=== PATIENT | female | born 1940 | race Caucasian/White ===

== ENCOUNTER 2018-01-11 11:47 | Emergency (ER) | payer MEDICARE, MEDICAID ==
[~2018-01-11] VITALS: Ht 160 cm; Wt 45.0 kg
[2018-01-11] MEDS ORDERED: SODIUM CHLORIDE 0.9% 1,000 ML IV ONE (12:01)
[2018-01-11 12:44] LABS: CHLORIDE 100 mEq/L (98-107)
[2018-01-11 12:50] LABS: BASOPHILS % 1.3 % (0.0-2.0); EOSINOPHILS % 0.1 % (0.0-5.0); HEMATOCRIT. 36.2 % (36.0-48.0); HEMOGLOBIN. 12.3 g/dL (12.0-16.0); LYMPHOCYTES % 12.1 % (20.0-50.0); MEAN CORPUSCULAR HEMOGLOBIN 32.3 pg (28.0-32.0); MEAN CORPUSCULAR VOLUME 95.5 fL (81.0-99.0); MEAN PLATELET VOLUME 8.4 fl (7.4-10.4); MONOCYTES % 4.9 % (2.0-8.0); NEUTROPHILS % 81.6 % (40.0-76.0); PLATELET 294 x1000/uL (130-400); RED BLOOD CELL COUNT 3.79 mill/uL (4.2-5.4)
[2018-01-11 13:11] LABS: CLARITY URINE CLEAR (CLEAR); COLOR URINE YELLOW (YELLOW); KETONES URINE 2+ (NEGATIVE); LEUKOCYTE ESTERASE URINE 2+ (NEGATIVE); NITRITE URINE NEGATIVE (NEGATIVE); OCCULT BLOOD URINE NEGATIVE (NEGATIVE); PROTEIN URINE NEGATIVE (NEGATIVE); SPECIFIC GRAVITY URINE 1.021 (1.005-1.030)
[2018-01-11] MEDS ORDERED: CEFTRIAXONE 1 G PREMIX 50 ML IV ONE (13:45)
[2018-01-11 14:49] VITALS: BP 123/75
[2018-01-11] MEDS ORDERED: IOHEXOL-300 100 ML BOTTLE ONE (15:36)
== END 2018-01-11 15:03 | disposition home or self-care (01) ==
LOC: ER 11:59
DX: N39.0 Urinary tract infection, site not specified (principal); E16.2 Hypoglycemia, unspecified; E86.0 Dehydration; M54.41 Lumbago with sciatica, right side; E03.9 Hypothyroidism, unspecified; R79.1 Abnormal coagulation profile
CPT/HCPCS: 36415; 51702; 74177; 80053; 81003; 83690; 85025; 85610; 96361; 96374; 99285; J0696; J7030; Q9967; A4315

== ENCOUNTER 2018-06-15 10:04 | Emergency (ER) | payer MEDICARE, MEDICAID ==
[~2018-06-15] VITALS: Ht 149.9 cm; Wt 48.0 kg
[~2018-06-15 10:04] MED LIST: FERR325T6 PO; LEVO100T9 PO
[2018-06-15 11:28] LABS: BASOPHILS % 1.7 % (0.0-2.0); EOSINOPHILS % 1.8 % (0.0-5.0); HEMATOCRIT. 32.7 % (36.0-48.0); HEMOGLOBIN. 11.2 g/dL (12.0-16.0); LYMPHOCYTES % 23.9 % (20.0-50.0); MEAN CORPUSCULAR HEMOGLOBIN 32.9 pg (28.0-32.0); MEAN PLATELET VOLUME 8.6 fl (7.4-10.4); MONOCYTES % 6.3 % (2.0-8.0); NEUTROPHILS % 66.3 % (40.0-76.0); PLATELET 217 x1000/uL (130-400); RED BLOOD CELL COUNT 3.41 mill/uL (4.2-5.4)
[2018-06-15 11:31] LABS: CHLORIDE 105 mEq/L (98-107)
[2018-06-15 11:36] LABS: ETHANOL BLOOD < 10 mg/dL
[2018-06-15] MEDS ORDERED: SODIUM CHLORIDE 0.9% 500 ML IV ONE (11:54)
[2018-06-15 12:37] LABS: CLARITY URINE CLEAR (CLEAR); COLOR URINE YELLOW (YELLOW); KETONES URINE NEGATIVE (NEGATIVE); LEUKOCYTE ESTERASE URINE TRACE (NEGATIVE); NITRITE URINE NEGATIVE (NEGATIVE); OCCULT BLOOD URINE NEGATIVE (NEGATIVE); PH URINE 6.5 (4.5-8.0); PROTEIN URINE NEGATIVE (NEGATIVE); SPECIFIC GRAVITY URINE 1.011 (1.005-1.030); UROBILINOGEN URINE 0.2 E.U./dL (0.2-1.0)
[2018-06-15 12:45] LABS: *AMPHETAMINES SCREEN URINE NEGATIVE (NEGATIVE)
[2018-06-15 12:46] LABS: *BARBITURATES SCREEN URINE NEGATIVE (NEGATIVE); *BENZODIAZEPINES SCREEN URINE NEGATIVE (NEGATIVE); *COCAINE SCREEN URINE NEGATIVE (NEGATIVE); METHADONE URINE SCREEN NEGATIVE (NEGATIVE); OPIATES URINE SCREEN NEGATIVE (NEGATIVE)
[2018-06-15 12:47] LABS: CANNABINOID URINE SCREEN NEGATIVE (NEGATIVE); PHENCYCLIDINE URINE SCREEN NEGATIVE (NEGATIVE)
[2018-06-15] MEDS ORDERED: CEFTRIAXONE 1 G PREMIX 50 ML IV ONE (13:45)
[2018-06-15 16:00] VITALS: BP 135/68
== END 2018-06-15 16:03 | disposition home or self-care (01) ==
LOC: ER 10:04
DX: F03.90 Unspecified dementia, unspecified severity, without behavioral disturbance, psychotic disturbance, mood disturbance, and anxiety (principal); N39.0 Urinary tract infection, site not specified; E86.0 Dehydration; E05.90 Thyrotoxicosis, unspecified without thyrotoxic crisis or storm; M54.30 Sciatica, unspecified side; Z79.899 Other long term (current) drug therapy
CPT/HCPCS: 36415; 70450; 80048; 80305; 80307; 80329; 81003; 85025; 87077; 87086; 87186; 96365; 99285; G0482; J0696; J7040

== ENCOUNTER 2018-09-29 09:19 | Inpatient (IN) | payer MEDICARE, MEDICAID ==
[~2018-09-29] VITALS: Ht 160 cm; Wt 52.6 kg
[2018-09-29] MEDS ORDERED: SODIUM CHLORIDE 0.9% 1,000 ML IV ONE (10:23)
[2018-09-29] MEDS ORDERED: MORPHINE SULFATE 2 MG/ML CPJ (NOT FOR IM USE) IV ONE (10:30)
[2018-09-29 11:01] LABS: EOSINOPHILS % 1.1 % (0.0-5.0); HEMATOCRIT. 34.6 % (36.0-48.0); HEMOGLOBIN. 11.3 g/dL (12.0-16.0); MEAN CORPUSCULAR HEMOGLOBIN 31.9 pg (28.0-32.0); MEAN CORPUSCULAR VOLUME 97.6 fL (81.0-99.0); MEAN PLATELET VOLUME 8.4 fl (7.4-10.4); MONOCYTES % 5.5 % (2.0-8.0); NEUTROPHILS % 78.4 % (40.0-76.0); PLATELET 181 x1000/uL (130-400); RED BLOOD CELL COUNT 3.55 mill/uL (4.2-5.4); RED CELL DISTRIBUTION WIDTH 13.7 % (11.6-14.6)
[2018-09-29 11:07] LABS: CHLORIDE 106 mEq/L (98-107)
[2018-09-29] MEDS ORDERED: MAGNESIUM/ALUMINUM HYDROXIDE/SIMETHICONE 30ML UDC PO PRN (16:15)
[2018-09-29] MEDS ORDERED: ACETAMINOPHEN 325MG TABLET PO PRN (16:15)
[2018-09-29] MEDS ORDERED: GUAIFENESIN 200MG/10ML SUGAR FREE UDC PO PRN (16:15)
[2018-09-29] MEDS ORDERED: CLONIDINE 0.1MG TABLET PO PRN (16:15)
[2018-09-29] MEDS ORDERED: MORPHINE SULFATE 4 MG/ML CPJ (NOT FOR IM USE) IV PRN (16:15)
[2018-09-29] MEDS ORDERED: DIPHENHYDRAMINE 50MG/ML VIAL IV PRN (16:15)
[2018-09-29] MEDS ORDERED: ACETAMINOPHEN 650MG SUPP PR PRN (16:15)
[2018-09-29] MEDS ORDERED: DOCUSATE SODIUM 100MG CAPSULE PO PRN (16:15)
[2018-09-29] MEDS ORDERED: IPRATROPIUM/ALBUTEROL 0.5-3(2.5)MG/3ML NEB INH PRN (16:15)
[2018-09-29] MEDS ORDERED: LORAZEPAM 0.5MG TABLET PO PRN (16:15)
[2018-09-29] MEDS ORDERED: NA PHOS,M-B/NA PHOS,DI-BA ENEMA 118ML PR PRN (16:15)
[2018-09-29] MEDS ORDERED: HYDROCODONE/ACETAMINOPHEN 5/325MG TABLET PO PRN (16:15)
[2018-09-29 20:00] VITALS: BP 144/80
[2018-09-29 21:52] VITALS: BP 135/61
[2018-09-29] MEDS ORDERED: OMEP40CA34 PO (22:03)
[2018-09-29] MEDS ORDERED: MELA10TA2 PO (22:03)
[2018-09-29] MEDS ORDERED: FOLI1TAB63 PO (22:03)
[2018-09-29] MEDS: DEXT 5%/0.45% NACL 1000ML 1,000 ML IV SCH (22:19)
[2018-09-30] VITALS: BP 118/57
[2018-09-30 00:11] LABS: CREATINE KINASE 56 IU/L (26-192)
[2018-09-30 00:12] LABS: CREATINE KINASE MB FRACTION < 1.0 ng/mL (0.5-3.6)
[2018-09-30 04:00] VITALS: BP 128/62
[2018-09-30] MEDS: LEVOTHYROXINE SODIUM 100MCG TABLET PO SCH (06:25)
[2018-09-30 07:21] LABS: BASOPHILS % 1.5 % (0.0-2.0); CHLORIDE 109 mEq/L (98-107); EOSINOPHILS % 4.5 % (0.0-5.0); HEMOGLOBIN. 9.9 g/dL (12.0-16.0); LYMPHOCYTES % 23.4 % (20.0-50.0); MEAN CORPUSCULAR HEMOGLOBIN 32.4 pg (28.0-32.0); MEAN CORPUSCULAR VOLUME 94.7 fL (81.0-99.0); MEAN PLATELET VOLUME 8.6 fl (7.4-10.4); MONOCYTES % 9.6 % (2.0-8.0); PLATELET 189 x1000/uL (130-400); RED BLOOD CELL COUNT 3.06 mill/uL (4.2-5.4); RED CELL DISTRIBUTION WIDTH 13.3 % (11.6-14.6)
[2018-09-30 07:33] LABS: CREATINE KINASE 47 IU/L (26-192)
[2018-09-30 07:34] LABS: CREATINE KINASE MB FRACTION < 1.0 ng/mL (0.5-3.6); T4 FREE 1.69 ng/dL (0.76-1.46)
[2018-09-30 07:36] LABS: HDL CHOLESTEROL 75 mg/dL (40-59)
[2018-09-30 07:37] LABS: LDL CHOLESTEROL 44 mg/dL (5-100)
[2018-09-30 08:00] VITALS: BP 129/79
[2018-09-30] MEDS: FERROUS SULFATE 325MG TABLET PO SCH ×3 (09:59→17:50)
[2018-09-30 12:00] VITALS: BP 116/54
[2018-09-30] MEDS: DEXT 5%/0.45% NACL 1000ML 1,000 ML IV SCH (18:18)
[2018-09-30 20:00] VITALS: BP 127/57
[2018-10-01] VITALS (7 sets, daily range): BP systolic 122–143; BP diastolic 51–67
[2018-10-01] MEDS: LEVOTHYROXINE SODIUM 100MCG TABLET PO SCH (06:27)
[2018-10-01] MEDS: DEXT 5%/0.45% NACL 1000ML 1,000 ML IV SCH (07:20)
[2018-10-01] MEDS: FERROUS SULFATE 325MG TABLET PO SCH ×2 (08:30→14:01)
[2018-10-02] VITALS: BP 119/65
== END 2018-10-02 01:25 | disposition home or self-care (01) | DRG 552 ==
LOC: ER 09:27 → 6EST 15:04 → EDBEDREQ 15:28 → SUPCPDRO 16:02 → ENRESERV 20:01
PROVIDERS: ADMIT Internal Medicine; ATTEND Internal Medicine
DX: S32.039A Unspecified fracture of third lumbar vertebra, initial encounter for closed fracture (principal); D64.9 Anemia, unspecified; E03.9 Hypothyroidism, unspecified; F03.90 Unspecified dementia, unspecified severity, without behavioral disturbance, psychotic disturbance, mood disturbance, and anxiety; M54.30 Sciatica, unspecified side; R63.4 Abnormal weight loss; R26.2 Difficulty in walking, not elsewhere classified; J44.9 Chronic obstructive pulmonary disease, unspecified; M19.90 Unspecified osteoarthritis, unspecified site; W06.XXXA Fall from bed, initial encounter; M85.80 Other specified disorders of bone density and structure, unspecified site; R62.7 Adult failure to thrive; Z79.899 Other long term (current) drug therapy; Y93.89 Activity, other specified; Y92.89 Other specified places as the place of occurrence of the external cause; Y99.8 Other external cause status; Z68.20 Body mass index [BMI] 20.0-20.9, adult
CPT/HCPCS: 36415; 71045; 72070; 72100; 72128; 72131; 73502; 73552; 80061; 82550; 82553; 84439; 84443; 84481; 93005; 93970; 99285; J2270; J7030

== ENCOUNTER 2018-11-21 09:43 | Inpatient (IN) | payer MEDICARE, MEDICAID ==
[~2018-11-21] VITALS: Ht 142.2 cm; Wt 33.6 kg
[~2018-11-21 09:43] MED LIST changes: +FOLI1TAB63 PO; +MELA10TA2 PO; +OMEP40CA34 PO
[2018-11-21 15:29] LABS: BASOPHILS % 1.9 % (0.0-2.0); EOSINOPHILS % 1.4 % (0.0-5.0); HEMATOCRIT. 30.1 % (36.0-48.0); HEMOGLOBIN. 10.2 g/dL (12.0-16.0); MEAN CORPUSCULAR HEMOGLOBIN 31.8 pg (28.0-32.0); MEAN CORPUSCULAR VOLUME 93.7 fL (81.0-99.0); MEAN PLATELET VOLUME 7.3 fl (7.4-10.4); MONOCYTES % 7.2 % (2.0-8.0); NEUTROPHILS % 65.5 % (40.0-76.0); PLATELET 293 x1000/uL (130-400); RED BLOOD CELL COUNT 3.21 mill/uL (4.2-5.4); RED CELL DISTRIBUTION WIDTH 12.3 % (11.6-14.6)
[2018-11-21 15:34] LABS: CHLORIDE 98 mEq/L (98-107)
[2018-11-21 15:38] LABS: ETHANOL BLOOD < 10 mg/dL
[2018-11-22] MEDS ORDERED: DIPHENHYDRAMINE 50MG/ML VIAL IV PRN (03:45)
[2018-11-22] MEDS ORDERED: LORAZEPAM 0.5MG TABLET PO PRN (03:45)
[2018-11-22] MEDS ORDERED: ACETAMINOPHEN 325MG TABLET PO PRN (03:45)
[2018-11-22] MEDS ORDERED: ONDANSETRON HCL 4MG/2ML INJ IV PRN (03:45)
[2018-11-22] MEDS ORDERED: MAGNESIUM/ALUMINUM HYDROXIDE/SIMETHICONE 30ML UDC PO PRN (03:45)
[2018-11-22] MEDS ORDERED: ENOXAPARIN 40MG/0.4ML SYR SUBCUT SCH (05:00)
[2018-11-22] MEDS ORDERED: ENOXAPARIN 30MG/0.3ML SYR SUBCUT SCH (05:00)
[2018-11-22] MEDS: SODIUM CHLORIDE 0.9% INJ 3ML FLUSH IVF SCH ×3 (06:19→21:00)
[2018-11-22 18:00] VITALS: BP_SYST 130; BP_SYST 138; BP_DIAS 72
[2018-11-22 20:22] VITALS: BP 133/72
[2018-11-23] VITALS (8 sets, daily range): BP systolic 115–130; BP diastolic 62–85
[2018-11-23] MEDS: SODIUM CHLORIDE 0.9% INJ 3ML FLUSH IVF SCH ×3 (06:32→21:09)
[2018-11-23] MEDS: ENOXAPARIN 30MG/0.3ML SYR SUBCUT SCH (10:58)
[2018-11-23] MEDS ORDERED: LEVOTHYROXINE SODIUM 100MCG TABLET PO SCH (14:45)
[2018-11-24 04:00] VITALS: BP 132/72
[2018-11-24] MEDS: SODIUM CHLORIDE 0.9% INJ 3ML FLUSH IVF SCH ×3 (06:35→21:13)
[2018-11-24] MEDS: LEVOTHYROXINE SODIUM 100MCG TABLET PO SCH (06:40)
[2018-11-24 07:58] VITALS: BP 139/75
[2018-11-24] MEDS: ENOXAPARIN 30MG/0.3ML SYR SUBCUT SCH (08:11)
[2018-11-24 11:32] VITALS: BP 125/65
[2018-11-24 16:00] VITALS: BP 115/58
[2018-11-24 19:53] VITALS: BP 124/61
[2018-11-25] VITALS (7 sets, daily range): BP systolic 102–143; BP diastolic 54–69
[2018-11-25] MEDS: SODIUM CHLORIDE 0.9% INJ 3ML FLUSH IVF SCH ×3 (06:35→20:49)
[2018-11-25] MEDS: LEVOTHYROXINE SODIUM 100MCG TABLET PO SCH (06:35)
[2018-11-25] MEDS: ENOXAPARIN 30MG/0.3ML SYR SUBCUT SCH (09:00)
[2018-11-25] MEDS: TAMSULOSIN HCL 0.4MG SR CAPSULE PO SCH (17:09)
[2018-11-25 17:12] LABS: CLARITY URINE CLEAR (CLEAR); COLOR URINE YELLOW (YELLOW); KETONES URINE NEGATIVE (NEGATIVE); LEUKOCYTE ESTERASE URINE NEGATIVE (NEGATIVE); NITRITE URINE NEGATIVE (NEGATIVE); OCCULT BLOOD URINE NEGATIVE (NEGATIVE); PH URINE 6.5 (4.5-8.0); PROTEIN URINE NEGATIVE (NEGATIVE); SPECIFIC GRAVITY URINE 1.019 (1.005-1.030)
[2018-11-26 04:00] VITALS: BP 112/57
[2018-11-26] MEDS: LEVOTHYROXINE SODIUM 100MCG TABLET PO SCH (06:23)
[2018-11-26] MEDS: SODIUM CHLORIDE 0.9% INJ 3ML FLUSH IVF SCH ×3 (06:24→22:07)
[2018-11-26 08:00] VITALS: BP 106/59
[2018-11-26] MEDS: TAMSULOSIN HCL 0.4MG SR CAPSULE PO SCH (08:11)
[2018-11-26] MEDS: ENOXAPARIN 30MG/0.3ML SYR SUBCUT SCH (08:12)
[2018-11-26 12:00] VITALS: BP 100/53
[2018-11-26 16:00] VITALS: BP 127/62
[2018-11-26 20:00] VITALS: BP 109/59
[2018-11-27] VITALS: BP 112/62
[2018-11-27 04:00] VITALS: BP 139/91
[2018-11-27] MEDS: SODIUM CHLORIDE 0.9% INJ 3ML FLUSH IVF SCH ×2 (06:45→13:47)
[2018-11-27] MEDS: LEVOTHYROXINE SODIUM 100MCG TABLET PO SCH (06:45)
[2018-11-27 07:29] LABS: HEMATOCRIT 28.1 % (36.0-48.0); HEMOGLOBIN 9.5 g/dL (12.0-16.0); MEAN CORPUSCULAR HEMOGLOBIN 31.9 pg (28.0-32.0); MEAN CORPUSCULAR VOLUME 94.1 fL (81.0-99.0); PLATELET 264 x1000/uL (130-400); RED BLOOD CELL COUNT 2.98 mill/uL (4.2-5.4); RED CELL DISTRIBUTION WIDTH 12.6 % (11.6-14.6)
[2018-11-27 08:01] VITALS: BP 110/52
[2018-11-27] MEDS: TAMSULOSIN HCL 0.4MG SR CAPSULE PO SCH (08:52)
[2018-11-27] MEDS: ENOXAPARIN 30MG/0.3ML SYR SUBCUT SCH (08:53)
[2018-11-27 12:00] VITALS: BP 114/52
[2018-11-27 16:00] VITALS: BP 90/43
[2018-11-27 19:28] LABS: BASOPHILS % 2.5 % (0.0-2.0); EOSINOPHILS % 4.6 % (0.0-5.0); HEMATOCRIT. 26.8 % (36.0-48.0); HEMOGLOBIN. 8.9 g/dL (12.0-16.0); LYMPHOCYTES % 37.6 % (20.0-50.0); MEAN CORPUSCULAR HEMOGLOBIN 31.3 pg (28.0-32.0); MEAN CORPUSCULAR VOLUME 94.4 fL (81.0-99.0); MEAN PLATELET VOLUME 7.6 fl (7.4-10.4); MONOCYTES % 8.1 % (2.0-8.0); NEUTROPHILS % 47.2 % (40.0-76.0); PLATELET 246 x1000/uL (130-400); RED BLOOD CELL COUNT 2.84 mill/uL (4.2-5.4); RED CELL DISTRIBUTION WIDTH 12.6 % (11.6-14.6)
[2018-11-27 20:00] VITALS: BP 104/51
[2018-11-28] VITALS: BP 102/48
[2018-11-28 04:00] VITALS: BP 110/52
[2018-11-28] MEDS: LEVOTHYROXINE SODIUM 100MCG TABLET PO SCH (06:15)
[2018-11-28 08:00] VITALS: BP 100/55
[2018-11-28] MEDS: ENOXAPARIN 30MG/0.3ML SYR SUBCUT SCH (08:09)
[2018-11-28] MEDS: TAMSULOSIN HCL 0.4MG SR CAPSULE PO SCH (08:09)
[2018-11-28 12:00] VITALS: BP 102/52
[2018-11-28 16:00] VITALS: BP 108/55
[2018-11-28] MEDS: SODIUM CHLORIDE 0.9% INJ 3ML FLUSH IVF SCH (17:52)
[2018-11-28 20:00] VITALS: BP 104/52
[2018-11-29] VITALS: BP 109/52
[2018-11-29 04:00] VITALS: BP 119/58
[2018-11-29] MEDS: LEVOTHYROXINE SODIUM 100MCG TABLET PO SCH (06:43)
[2018-11-29] MEDS: SODIUM CHLORIDE 0.9% INJ 3ML FLUSH IVF SCH (06:46)
[2018-11-29 08:00] VITALS: BP 135/61
[2018-11-29] MEDS ORDERED: RANI150T43 MT (08:00)
[2018-11-29] MEDS ORDERED: SERT50TA MT (08:00)
[2018-11-29] MEDS ORDERED: OMEP20TA15 PO (08:05)
[2018-11-29] MEDS ORDERED: FERR325T6 MT (08:05)
[2018-11-29] MEDS ORDERED: CHOL200059 PO (08:13)
[2018-11-29] MEDS: ENOXAPARIN 30MG/0.3ML SYR SUBCUT SCH (08:15)
[2018-11-29] MEDS: TAMSULOSIN HCL 0.4MG SR CAPSULE PO SCH (08:15)
[2018-11-29 12:32] VITALS: BP 116/53
== END 2018-11-29 13:50 | DRG 71 ==
LOC: ER 10:35 → 6WST 11-22 00:06 → EDBEDREQDT 11-22 00:15 → EDBEDREQSVC 11-22 00:15 → EDBEDREQTM 11-22 00:15 → EDBEDREQ 11-22 00:15 → ENRESERV 11-22 15:42 → ER 11-22 17:44 → 6EST 11-27 11:25
PROVIDERS: ADMIT Internal Medicine; ATTEND Internal Medicine
DX: G93.40 Encephalopathy, unspecified (principal); E87.1 Hypo-osmolality and hyponatremia; D64.9 Anemia, unspecified; E03.9 Hypothyroidism, unspecified; F03.90 Unspecified dementia, unspecified severity, without behavioral disturbance, psychotic disturbance, mood disturbance, and anxiety; F41.1 Generalized anxiety disorder
CPT/HCPCS: 36415; 71045; 80048; 80307; 80320; 80329; 83880; 84443; 85027; 93005; 96372; 97116; 97162; 97530; 99285; J1650; A4315; G0480